=== PATIENT | female | born 1985 | race Caucasian/White ===

== ENCOUNTER 2020-07-10 18:26 | Inpatient (IN) | payer BC ==
[~2020-07-10] VITALS: Ht 182.9 cm; Wt 136.1 kg
[2020-07-10 20:04] LABS: APPEARANCE,URINE Clear (CLEAR); BILIRUBIN,URINE Negative (NEGATIVE); COLOR,URINE Yellow (YELLOW); GLUCOSE, URINE (UA) Negative (NEGATIVE); KETONES,URINE Negative (NEGATIVE); LEUKOCYTE ESTERASE ,URINE Negative (NEGATIVE); NITRATE,URINE Negative (NEGATIVE); OCCULT BLOOD,URINE Trace (NEGATIVE); PH,URINE 5.5 (5.0-8.0); PROTEIN,URINE Negative (NEGATIVE)
[2020-07-10 20:20] LABS: RBC,URINE 0-1 /HPF (0-1)
[2020-07-10 20:21] LABS: BACTERIA,URINE Moderate /HPF (None Seen); MUCUS,URINE Few LPF (None Seen); SQUAMOUS EPITHELIAL CELL,UR Moderate /HPF (0-2)
[2020-07-10] MEDS ORDERED: NALOXONE HCL 0.4 MG/1 ML ML IV PRN (20:45)
[2020-07-10] MEDS ORDERED: EPHEDRINE SULFATE 50 MG/ML AMPULE IVP PRN (20:45)
[2020-07-10] MEDS ORDERED: AMPICILLIN 2GM+NS 100ML 100 ML IV SCH (20:45)
[2020-07-10] MEDS ORDERED: LACTATED RINGERS 1000ML 1,000 ML IV PRN (20:45)
[2020-07-10] MEDS ORDERED: PROMETHAZINE HCL 25 MG/ML 1ML AMPULE IM PRN (20:45)
[2020-07-10] MEDS ORDERED: MEPERIDINE-PF 50 MG/ML SYG IVP PRN (20:45)
[2020-07-10] MEDS ORDERED: ROPIVACAINE 0.2% 100ML VIAL 100 ML EP SCH (20:45)
[2020-07-10 21:06] LABS: HEMATOCRIT 31.9 % (36-48); MEAN CORPUSCULAR HEMOGLOBIN 30.2 pg (27.0-33.0); MEAN CORPUSCULAR HGB CONC 32.6 g/dL (32.0-36.0); MEAN CORPUSCULAR VOLUME 92.7 fL (79-99); RED BLOOD CELL COUNT(AUTO) 3.44 MIL/uL (4.00-5.50); RED CELL DISTRIBUTION WIDTH 13.5 % (11.0-15.5); WHITE BLOOD COUNT (AUTO) 11.2 K/uL (4.8-10.8)
[2020-07-10] MEDS ORDERED: AMPICILLIN 2GM+NS 100ML 100 ML IV ONE (21:07)
[2020-07-10 21:10] VITALS: BP 143/82
[2020-07-10] MEDS ORDERED: PREN-196 PO (21:13)
[2020-07-10 21:38] LABS: INR 0.88 (0.85-1.15); PARTIAL THROMBOPLASTIN TIME 23.9 SEC (26.3-35.5); PROTHROMBIN TIME 9.6 SEC (9.6-11.6)
[2020-07-10 21:39] LABS: CREATININE 0.9 mg/dL (0.5-1.5); POTASSIUM 4.2 mmol/L (3.5-5.1)
[2020-07-10 21:44] LABS: ALBUMIN 2.5 g/dL (3.5-5.0); BILIRUBIN,TOTAL 0.4 mg/dL (0.2-1.0); TOTAL PROTEIN, SERUM 6.8 g/dL (6.0-8.3); URIC ACID 5.3 mg/dL (2.6-7.2)
[2020-07-11] MEDS: AMPICILLIN 1GM+NS 50ML 50 ML IV SCH ×4 (01:10→21:00)
[2020-07-11] MEDS ORDERED: OXYTOCIN-LR 20 UNITS/1000 ML 1,000 ML IV ONE ×2 (04:17→12:54)
[2020-07-11] MEDS: LACTATED RINGERS 500 ML 500 ML IV PRN ×2 (04:50→09:20)
[2020-07-11] MEDS ORDERED: OXYTOCIN 10 USP UNITS/ML 20 UNIT in LACTATED RINGERS 1000ML 1,000 ML IV SCH (05:00)
[2020-07-11] MEDS ORDERED: LANOLIN 30GM OINTMENT TP PRN (13:15)
[2020-07-11] MEDS: OXYTOCIN-LR 20 UNITS/1000 ML 1,000 ML IV SCH (13:15)
[2020-07-11] MEDS ORDERED: BENZOCAINE/LANOLIN/ALOE VERA 60 ML AEROSOL TP PRN (13:15)
[2020-07-11] MEDS ORDERED: MEASLES/MUMPS/RUBELLA VACCINE, LIVE 0.5 ML/VIAL SQ PRN (13:15)
[2020-07-11] MEDS ORDERED: ACETAMINOPHEN-CODEINE 300/30MG TAB PO PRN (13:15)
[2020-07-11] MEDS ORDERED: DIPH,PERTUSS(ACELL),TET VAC/PF 0.5 ML VIAL IM PRN (13:15)
[2020-07-11] MEDS ORDERED: ACETAMINOPHEN 325 MG TAB PO PRN (13:15)
[2020-07-11] MEDS ORDERED: WITCH HAZEL 1 PAD TP PRN (13:15)
[2020-07-11 14:40] VITALS: BP 130/87
[2020-07-11] MEDS: IBUPROFEN 600 MG TABLET PO PRN (17:47)
[2020-07-11 19:35] VITALS: BP 125/75
[2020-07-11] MEDS: DOCUSATE SODIUM 100 MG CAP PO SCH (20:57)
[2020-07-11 23:19] VITALS: BP 128/77
[2020-07-12] MEDS: AMPICILLIN 1GM+NS 50ML 50 ML IV SCH ×2 (00:42→00:43)
[2020-07-12] MEDS: OXYTOCIN-LR 20 UNITS/1000 ML 1,000 ML IV SCH (00:44)
[2020-07-12 03:34] VITALS: BP 113/69
[2020-07-12 03:38] VITALS: BP 128/73
[2020-07-12 07:28] VITALS: BP 131/82
[2020-07-12] MEDS: DOCUSATE SODIUM 100 MG CAP PO SCH (09:00)
[2020-07-12] MEDS: IBUPROFEN 600 MG TABLET PO PRN (09:01)
[2020-07-12 11:13] LABS: HEPATITIS Bs ANTIGEN SCREEN P Negative (Negative)
[2020-07-12 11:18] VITALS: BP 129/80
== END 2020-07-12 14:25 | disposition home or self-care (01) | DRG 807 ==
LOC: EDH 18:26 → OBSVTOIN 18:51 → LDH 18:51 → WSH 07-11 14:35
PROVIDERS: ADMIT Obstetrics & Gynecology; ATTEND Obstetrics & Gynecology
PROC: 10E0XZZ Delivery of Products of Conception, External Approach (ICD-10-PCS; principal; 2020-07-11)
PROC: 10907ZC Drainage of Amniotic Fluid, Therapeutic from Products of Conception, Via Natural or Artificial Opening (ICD-10-PCS; 2020-07-11)
PROC: 3E0234Z Introduction of Serum, Toxoid and Vaccine into Muscle, Percutaneous Approach (ICD-10-PCS; 2020-07-11)
PROC: 3E0134Z Introduction of Serum, Toxoid and Vaccine into Subcutaneous Tissue, Percutaneous Approach (ICD-10-PCS; 2020-07-11)
PROC: 3E0P7VZ Introduction of Hormone into Female Reproductive, Via Natural or Artificial Opening (ICD-10-PCS; 2020-07-11)
PROC: 3E0R3BZ Introduction of Anesthetic Agent into Spinal Canal, Percutaneous Approach (ICD-10-PCS; 2020-07-11)
PROC: 00HU33Z Insertion of Infusion Device into Spinal Canal, Percutaneous Approach (ICD-10-PCS; 2020-07-11)
PROC: 3E033VJ Introduction of Other Hormone into Peripheral Vein, Percutaneous Approach (ICD-10-PCS; 2020-07-11)
DX: O14.04 Mild to moderate pre-eclampsia, complicating childbirth (principal); Z37.0 Single live birth; O70.0 First degree perineal laceration during delivery; O99.214 Obesity complicating childbirth; E66.9 Obesity, unspecified; O99.824 Streptococcus B carrier state complicating childbirth; Z3A.38 38 weeks gestation of pregnancy; Z23 Encounter for immunization
CPT/HCPCS: 36415; 80053; 81001; 84550; 85027; 85384; 85610; 85730; 86592; 86850; 86900; 86901; 87088; 87340; 90715; A4314; G0378; J0290; J2590; J2795; J7120